=== PATIENT | female | born 1975 | race Caucasian/White ===

== ENCOUNTER 2017-07-02 11:44 | Outpatient (CLI) | payer OTHER ==
--- NOTE | 2017-07-02 23:28 | CT ---
CT ABDOMEN AND PELVIS WITHOUT CONTRAST 07/02/[address] of the abdomen and pelvis was performed for evaluation following trauma. The patient has so me pain and bruising in the low anterior abdominal/pelvic wall region. Axial slices were acquired and then coronal and sagittal reconstructions were done. The lung bases show some streaking and a few patchy areas that are most likely atelectasis. Contusio n seems less likely since the trauma was centered over the low abdomen/upper pelvis. There are no eff usions and no sign of pneumothorax. The liver is enlarged and shows diffuse fatty infiltration. The s pleen is generous in size but still within normal limits at 13.5 cm in length. The pancreas, adrenal glands and kidneys were unremarkable within limitations of a noncontrast study. There has been a prio r cholecystectomy. 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 The bowel is nondistended. There is no sign of bowel obstruction or bowel well thickening. No inflamm atory changes are seen around bowel. CT of the pelvis shows reticulation and haziness in the fat of the lower anterior abdominal/upper pel yoly wall. This is presumably contusion from the recent injury. The underlying muscles all appeared no rmal with no sign of hematoma. There was no sign of pelvic bleeding. No pelvic masses or free fluid w as seen. The bony structures on the scan all appeared intact. No vertebral fractures, pelvic fractures, or oth er acute bony changes were seen. there was some mild concentric bulging of the L5-S1 disc which has a calcification at its margin. IMPRESSION: 1. Evidence of trauma to the low abdominal/upper pelvic anterior crisostomo with no underlying injury seen. 2. Hepatomegaly with diffuse fatty infiltration. 3. Several patchy areas in the lung bases, most likely atelectasis. POS: HOME
== END 2017-07-02 11:45 | disposition home or self-care (01) ==
LOC: BURCT 11:44
PROVIDERS: ATTEND Physician Assistant
DX: R10.9 Unspecified abdominal pain (principal); D69.2 Other nonthrombocytopenic purpura; K76.0 Fatty (change of) liver, not elsewhere classified; R91.8 Other nonspecific abnormal finding of lung field
CPT/HCPCS: 74176